=== PATIENT | female | born 1955 | race Caucasian/White ===

== ENCOUNTER 2017-11-20 19:39 | Emergency (ER) | payer BC ==
--- NOTE | 2017-11-20 20:42 | ED ---
Neurological HPI - HPI Summary HPI Summary: Pt is 62 y/o F who presents to ED c/o right sided facial droop since yesterday. On 10/29/17 she was diagnosed with shingles which presented as sores in her mouth with a rash around mouth and up to her cheeks. Three days ago the shingles had spread to her ears and she still feels it on her tongue as well. Yesterday she noticed her face began drooping and she visited earlier today and was diagnosed with Melbeta Palsy. This evening she noticed the facial droop worsened which prompted her to visit the ED. Notes some nausea during the past weekend. Denies fever, chills, or abdominal pain. Pt also adds that in September she was diagnosed with lyme disease. Pt was in [place] in the [facility] last month as well. - History of Current Complaint Chief Complaint: EDGeneral Stated Complaint: FACE DROOPING Time Seen by Provider: 11/20/17 20:32 Hx Obtained From: Patient Onset/Duration: Started days ago, Still Present Timing: Constant Pain Intensity: 0 Pain Scale Used: 0-10 Numeric Aggravating: Nothing Alleviating: Nothing Associated Signs and Symptoms: Positive: Nausea/Vomiting. Negative: Fever - Allergy/Home Medications Allergies/Adverse Reactions: Allergies Allergy/AdvReac Type Severity Reaction Status Date / Time No Known Allergies Allergy Verified 11/20/17 19:44 PMH/Surg Hx/FS Hx/Imm Hx Musculoskeletal History: Reports: Other Musculoskeletal History - Lyme Disease EENT History: Reports: Other - Shingles Infectious Disease History: No Infectious Disease History: Denies: Traveled Outside the [place] in Last 30 Days - Family History Known Family History: Positive: None - Social History Alcohol Use: Occasionally Substance Use Type: Reports: None Smoking Status (MU): Never Smoked Tobacco Review of Systems Negative: Fever, Chills Positive: Nausea. Negative: Abdominal Pain Neurological: Other - right sided facial droop All Other Systems Reviewed And Are Negative: Yes Physical Exam - Summary Physical Exam Summary: Appearance: Well-appearing, Well-nourished, lying in bed comfortably Skin: Warm, dry, no obvious rash Eyes: sclera anicteric, no conjunctival pallor ENT: mucous membranes moist, pharynx appears normal Neck: Supple, nontender Respiratory: Clear to auscultation, no signs of respiratory distress Cardiovascular: Normal S1, S2. No murmurs. Normal distal pulses in tibial and radial bilaterally. Abdomen: Soft, nontender, normal active bowel sounds present Musculoskeletal: Normal, Strength/ROM Intact Neurological: A&Ox3, awake and alert, mentation is normal, speech is fluent and appropriate. Dense peripheral type facial nerve palsy on the right, the remainder of cranial nerves are intact. There are no active vesicles on the cheek or lip. Motor exam otherwise normal with good strength in lower extremities. Psychiatric: affect is normal, does not appear anxious or depressed Triage Information Reviewed: Yes Vital Signs On Initial Exam: Initial Vitals Temp Pulse Resp BP Pulse Ox 97.1 F 79 18 148/98 99 11/20/17 19:42 11/20/17 19:42 11/20/17 19:42 11/20/17 19:42 11/20/17 19:42 Vital Signs Reviewed: Yes Diagnostics - Vital Signs Vital Signs Temp Pulse Resp BP Pulse Ox 11/20/17 20:32 89 151/98 100 11/20/17 20:29 81 98 11/20/17 19:42 97.1 F 79 18 148/98 99 - Laboratory Lab Statement: Any lab studies that have been ordered have been reviewed, and results considered in the medical decision making process. 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 Laird agrees that facial droop is Radha Kathleen syndrome and recommends course of steroids. Discharge - Sign-Out/Discharge Documenting (check all that apply): Patient Departure - Discharge Plan Condition: Good Disposition: HOME Prescriptions: predniSONE [Prednisone 20 MG TAB] 60 mg PO DAILY 7 Days #21 tablet Patient Education Materials: Marcano Palsy (ED) Referrals: Kiara Laird MD [Medical Doctor] - 1 Week Anju Sanchez MD [Primary Care Provider] - - Billing Disposition and Condition Condition: GOOD Disposition: Home - Attestation Statements Document Initiated by Scribe: Yes Documenting Scribe: Solitario Evans Provider For Whom Scribe is Documenting (Include Credential): Balaji Elmore MD Scribe Attestation: I, Solitario Evans, scribed for Balaji Elmore MD on 11/21/17 at 1951. Scribe Documentation Reviewed: Yes Provider Attestation: The documentation as recorded by the scribeSolitario accurately reflects the service I personally performed and the decisions made by me, Balaji Elmore MD
[2017-11-20] MEDS ORDERED: predniSONE TAB* 20 MG PO ONE (21:05)
[2017-11-20 21:30] VITALS: BP 145/95
== END 2017-11-20 21:17 | disposition home or self-care (01) ==
LOC: ED 19:39
DX: B02.21 Postherpetic geniculate ganglionitis (principal); A69.20 Lyme disease, unspecified
CPT/HCPCS: 99282; J7512